=== PATIENT | male | born 1935 | race Caucasian/White ===

== ENCOUNTER 2018-05-01 15:35 | Emergency (ER) | payer MEDICARE ==
[~2018-05-01] VITALS: Ht 180.3 cm; Wt 100.0 kg
[~2018-05-01 15:35] MED LIST: ANTIVERT25 MG OR; ASPIRIN EC81 MG PO; BACTROBAN2 % EX; C 250 PO; CEPHALEXIN500 MG OR; CRESTOR20 MG PO; DIOVAN160 MG OR; ECOTRIN325 MG OR; FISH OIL1000 MG PO; METFORMIN500 MG PO; METO50TA52 PO; METOPROL TAR25 MG PO; MULTIVITAMIN PO; NEXIUM40 M1 OR; PHAZYME PO; PIOGLITAZONE HC15 MG PO; PLAVIX75 MG OR; PRILOSEC20 MG/CAP PO; SIMVASTATIN40 MG PO; VYTORIN 10/401 TAB OR; XARELTO15 MG PO
[2018-05-01 16:14] LABS: HEMATOCRIT 37.3 % (39.0-50.0); HEMOGLOBIN 12.3 g/dl (14.0-18.0); IMMATURE GRANULOCYTES 0.5 % (0.0-5.0); MEAN CELL VOLUME 95.4 fL CALC (80.0-100.0); MEAN CORPUSCULAR HGB 31.5 pG CALC (26.0-32.0); NEUT# 5.83 thou/uL (1.82-7.42); RED BLOOD COUNT 3.91 mill/uL (4.70-6.10); RED CELL DISTRI WIDTH 13.4 % (11.5-15.5)
[2018-05-01 16:52] LABS: ALBUMIN 4.2 g/dL (3.2-5.0); ALKALINE PHOSPHATASE 76 u/l (38-126); ANION GAP 18 (6-22 (CALC)); BILIRUBIN, TOTAL 0.5 mg/dL (0.0-1.4); BUN 22 mg/dL (8-23); BUN/CREATININE RATIO 22 (12-20 (CALC)); CARBON DIOXIDE 21 mmol/l (22-30); CHLORIDE 104 mmol/l (95-108); GFR > 60 ML/MIN (>=60 (CALC)); GFR FOR AFR.AMER. > 60 ML/MIN (>=60 (CALC)); LIPASE 124 u/l (23-300); POTASSIUM 4.1 mmol/l (3.5-5.1); SGOT/AST 40 u/l (19-48); SODIUM 139 mmol/l (137-146); TOTAL PROTEIN 7.3 g/dL (6.3-8.2)
[2018-05-01] MEDS ORDERED: ONDANSETRON4 MG PO (17:35)
[2018-05-01 18:38] VITALS: BP 170/94
== END 2018-05-01 18:39 | disposition home or self-care (01) ==
LOC: ED 15:35
PROVIDERS: Family Medicine
DX: K52.9 Noninfective gastroenteritis and colitis, unspecified (principal); I25.10 Atherosclerotic heart disease of native coronary artery without angina pectoris; I10 Essential (primary) hypertension; K21.9 Gastro-esophageal reflux disease without esophagitis

== ENCOUNTER 2018-08-23 06:12 | Emergency (ER) | payer MEDICARE ==
[~2018-08-23] VITALS: Ht 180.3 cm; Wt 85.2 kg
[~2018-08-23 06:12] MED LIST changes: +ONDANSETRON4 MG PO
[2018-08-23 07:52] LABS: HEMATOCRIT 37.5 % (39.0-50.0); HEMOGLOBIN 11.9 g/dl (14.0-18.0); IMMATURE GRANULOCYTES 0.2 % (0.0-5.0); MEAN CELL VOLUME 96.6 fL CALC (80.0-100.0); MEAN CORPUSCULAR HGB 30.7 pG CALC (26.0-32.0); MEAN CORPUSCULAR HGB CONC 31.7 g/L CALC (32.0-36.0); NEUT# 8.07 thou/uL (1.82-7.42); RED BLOOD COUNT 3.88 mill/uL (4.70-6.10); RED CELL DISTRI WIDTH 13.8 % (11.5-15.5)
[2018-08-23 07:58] LABS: ALBUMIN 4.4 g/dL (3.2-5.0); ALKALINE PHOSPHATASE 73 u/l (38-126); AMYLASE 62 u/l (30-110); ANION GAP 15 (6-22 (CALC)); BILIRUBIN, TOTAL 0.5 mg/dL (0.0-1.4); BUN 23 mg/dL (8-23); BUN/CREATININE RATIO 30 (12-20 (CALC)); CARBON DIOXIDE 25 mmol/l (22-30); CHLORIDE 104 mmol/l (95-108); CREATININE 0.8 mg/dL (0.7-1.3); GFR > 60 ML/MIN (>=60 (CALC)); GFR FOR AFR.AMER. > 60 ML/MIN (>=60 (CALC)); LIPASE 64 u/l (23-300); POTASSIUM 3.9 mmol/l (3.5-5.1); SGOT/AST 45 u/l (19-48); SODIUM 140 mmol/l (137-146); TOTAL PROTEIN 7.6 g/dL (6.3-8.2)
[2018-08-23 08:09] LABS: MYOGLOBIN 94 ng/mL (0 - 121)
[2018-08-23 10:24] VITALS: BP 110/55
== END 2018-08-23 10:24 | disposition short-term general hospital (02) ==
LOC: ED 06:12
PROVIDERS: Emergency Medicine
DX: R79.89 Other specified abnormal findings of blood chemistry (principal); R11.2 Nausea with vomiting, unspecified; R19.7 Diarrhea, unspecified; I10 Essential (primary) hypertension; I25.810 Atherosclerosis of coronary artery bypass graft(s) without angina pectoris; Z95.1 Presence of aortocoronary bypass graft; Z95.5 Presence of coronary angioplasty implant and graft

== ENCOUNTER 2020-02-17 11:45 | Emergency (ER) | payer MEDICARE ==
[~2020-02-17] VITALS: Ht 180.3 cm; Wt 60.0 kg
[2020-02-17 15:22] VITALS: BP 129/68
== END 2020-02-17 15:22 | disposition home or self-care (01) ==
LOC: ED 11:45
DX: S80.11XA Contusion of right lower leg, initial encounter (principal); I10 Essential (primary) hypertension; I25.10 Atherosclerotic heart disease of native coronary artery without angina pectoris; K21.9 Gastro-esophageal reflux disease without esophagitis; W22.03XA Walked into furniture, initial encounter; Y92.009 Unspecified place in unspecified non-institutional (private) residence as the place of occurrence of the external cause; Z79.01 Long term (current) use of anticoagulants

== ENCOUNTER 2020-07-30 21:34 | Emergency (ER) | payer MEDICARE ==
[~2020-07-30] VITALS: Ht 180.3 cm; Wt 77.0 kg
[2020-07-30 22:14] VITALS: BP 174/79
== END 2020-07-30 22:14 | disposition home or self-care (01) ==
LOC: ED 21:34
PROC: 0HQ2XZZ Repair Right Ear Skin, External Approach (ICD-10-PCS; principal; 2020-07-30)
DX: S01.311A Laceration without foreign body of right ear, initial encounter (principal); I10 Essential (primary) hypertension; I25.10 Atherosclerotic heart disease of native coronary artery without angina pectoris; K21.9 Gastro-esophageal reflux disease without esophagitis; X58.XXXA Exposure to other specified factors, initial encounter

== ENCOUNTER 2020-08-02 | Emergency (ER) | payer MEDICARE | END 2020-08-02 10:30 | disposition home or self-care (01) | DX: S00.411 Abrasion of right ear (principal); I10 Essential (primary) hypertension; I25.10 Atherosclerotic heart disease of native coronary artery without angina pectoris; K21.9 Gastro-esophageal reflux disease without esophagitis; X58.XXXD Exposure to other specified factors, subsequent encounter ==

== ENCOUNTER 2020-09-21 09:17 | Emergency (ER) | payer MEDICARE ==
[~2020-09-21] VITALS: Ht 180.3 cm; Wt 77.0 kg
[2020-09-21] MEDS ORDERED: KEFLEX500 MG PO (09:40)
[2020-09-21 10:21] VITALS: BP 145/67
== END 2020-09-21 10:21 | disposition home or self-care (01) ==
LOC: ED 09:17
DX: S81.812A Laceration without foreign body, left lower leg, initial encounter (principal); I10 Essential (primary) hypertension; I25.10 Atherosclerotic heart disease of native coronary artery without angina pectoris; K21.9 Gastro-esophageal reflux disease without esophagitis; W22.8XXA Striking against or struck by other objects, initial encounter; Y92.810 Car as the place of occurrence of the external cause

== ENCOUNTER 2020-10-15 10:58 | Emergency (ER) | payer MEDICARE ==
[~2020-10-15] VITALS: Ht 180.3 cm; Wt 81.8 kg
[~2020-10-15 10:58] MED LIST changes: +KEFLEX500 MG PO
[2020-10-15] MEDS ORDERED: ULTRAM50 MG PO (13:11)
[2020-10-15] MEDS ORDERED: MEDDOSEPAK PO (13:11)
[2020-10-15 13:33] VITALS: BP 144/74
== END 2020-10-15 13:34 | disposition home or self-care (01) ==
LOC: ED 10:58
DX: M54.31 Sciatica, right side (principal); I10 Essential (primary) hypertension; I25.10 Atherosclerotic heart disease of native coronary artery without angina pectoris; K21.9 Gastro-esophageal reflux disease without esophagitis

== ENCOUNTER 2020-11-09 16:41 | Emergency (ER) | payer MEDICARE ==
[~2020-11-09] VITALS: Ht 180.3 cm; Wt 70.6 kg
[~2020-11-09 16:41] MED LIST changes: +MEDDOSEPAK PO; +ULTRAM50 MG PO
[2020-11-09 18:41] LABS: HEMATOCRIT 35.8 % (39.0-50.0); HEMOGLOBIN 11.2 g/dl (14.0-18.0); IMMATURE GRANULOCYTES 0.3 % (0.0-5.0); MEAN CELL VOLUME 93.2 fL CALC (80.0-100.0); MEAN CORPUSCULAR HGB 29.2 pG CALC (26.0-32.0); MEAN CORPUSCULAR HGB CONC 31.3 g/dL CAL (32.0-36.0); NEUT# 4.97 thou/uL (1.82-7.42); RED BLOOD COUNT 3.84 mill/uL (4.70-6.10); RED CELL DISTRI WIDTH 14.5 % (11.5-15.5)
[2020-11-09 18:54] LABS: ALBUMIN 3.6 g/dL (3.2-5.0); ALKALINE PHOSPHATASE 94 u/l (38-126); AMYLASE 36 u/l (30-110); ANION GAP 13 (6-22 (CALC)); BILIRUBIN, TOTAL 0.5 mg/dL (0.0-1.4); BUN 17 mg/dL (8-23); BUN/CREATININE RATIO 15 (12-20 (CALC)); CARBON DIOXIDE 28 mmol/l (22-30); CHLORIDE 99 mmol/l (95-108); CREATININE 1.1 mg/dL (0.7-1.3); ETHYL ALCOHOL 0 mg/dl (0-30); GFR > 60 ML/MIN (>=60 (CALC)); GFR FOR AFR.AMER. > 60 ML/MIN (>=60 (CALC)); LIPASE 65 u/l (23-300); POTASSIUM 3.8 mmol/l (3.5-5.1); SGOT/AST 25 u/l (19-48); SODIUM 136 mmol/l (137-146); TOTAL PROTEIN 6.7 g/dL (6.3-8.2)
[2020-11-09 19:11] LABS: INTERNATIONAL NORMALIZED RATIO 1.1 RATIO (0.7-1.3); PROTHROMBIN TIME 11.1 SECONDS (9.0-12.5)
[2020-11-10 02:37] VITALS: BP 130/88
== END 2020-11-10 01:15 | disposition short-term general hospital (02) ==
LOC: ED 16:41
DX: R41.82 Altered mental status, unspecified (principal); I48.91 Unspecified atrial fibrillation; I25.10 Atherosclerotic heart disease of native coronary artery without angina pectoris; I10 Essential (primary) hypertension; K21.9 Gastro-esophageal reflux disease without esophagitis; R29.6 Repeated falls; Z95.1 Presence of aortocoronary bypass graft; Z95.5 Presence of coronary angioplasty implant and graft